=== PATIENT | female | born 1985 | race Caucasian/White ===

== ENCOUNTER 2020-11-04 03:46 | Emergency (ER) | payer OTHER, SELFPAY ==
--- NOTE | ~2020-11-04 | US_ITS ---
EXAMINATION: US OB <=14 wk fetus w TV DATE: 11/04/2020 05:14 INDICATION: Bleeding during first trimester TECHNIQUE: Real-time pelvic transabdominal and transvaginal ultrasound was performed. COMPARISON: None. FINDINGS: The uterus measures 8.9 x 5.4 x 6.5 cm. There is a 7 mm x 6 mm right 7 mm intrauterine flu id collection. A 1.9 x 1.7 x 1.7 cm hypoechoic area is seen adjacent to this fluid collection. No fet al pole is identified. The right ovary measures 4.2 x 2.6 x 2.5 cm and appears to contain a 1.[address] The left ovary measures 2.7 x 1.0 x 2.8 cm. There is normal vascular flow in the ovaries. There i s no free fluid in the pelvis. IMPRESSION: 1. Intrauterine fluid collection without visible pole which could reflect early . Annmarie cent hypoechoic area is suspicious for subchorionic hemorrhage. If the patient is clinically stable, recommend followup with serial beta-hCG and ultrasound. Reviewed, dictated and finalized at location A. IMPRESSION: 1. Intrauterine fluid collection without visible pole which could reflect early . Adjacent hypoechoic area is suspicious for subchorionic hemor rhage. If the patient is clinically stable, recommend followup with serial beta -hCG and ultrasound.
[2020-11-04 03:59] VITALS: BP 116/75; PULSE 72; RESP 14; TEMP 36.7; O2SAT 100
--- NOTE | 2020-11-04 04:32 | ED.FEMALEGU ---
HPI - Female Genitourinary General Chief complaint: Vaginal Bleeding Stated complaint: 6 weeks preg, vaginal bleeding Time Seen by Provider: 11/04/20 04:18 Source: patient and family Mode of arrival: ambulatory Limitations: no limitations History of Present Illness HPI Narrative: Patient is a 35-year-old female G2, P0 with a history of ectopic , who presents for evaluation after a syncopal episode secondary to vaginal bleeding. Patient states that she woke up approximately 1 hour ago due to some left lower quadrant abdominal pain, and then felt the urge to urinate, went to the bathroom and noted some blood present in her urine. No associated dysuria. No pelvic pressure. No large blood clots present. Patient reports some mild left flank pain as well. Patient then panicked seeing the blood in the toilet, was able to ambulate back to her bed, and then passed out while talking to her . She was already laying down and did not hit her head. Positive loss of consciousness for 10 to 15 seconds. No seizure-like activity, urinary incontinence or tongue biting. Patient then awakened, was not in a confused state. Patient reports feeling mildly nauseous and lightheaded. Patient states that her PAEDIATRICIAN, Dr. Arian Mueller, is at [facility]. Her last ectopic resolved on its own without any medical intervention. Patient is scheduled for a transvaginal ultrasound today. Related Data Allergies Allergy/AdvReac Type Severity Reaction Status Date / Time codeine Allergy Intermediate Other Verified 11/04/20 04:14 Review of Systems Review of Systems: CONSTITUTIONAL: Denies fever, chills, or sweats. EYES: Denies visual changes, redness, or discharge. ENT: Denies rhinorrhea, congestion, sore throat, or otalgia. CARDIOVASCULAR: Denies chest pain, palpitations, or edema. RESPIRATORY: Denies cough or dyspnea. GASTROINTESTINAL: Denies abdominal pain, nausea, reports left lower abdominal pain and pelvic pain GENITOURINARY: Denies dysuria, reports hematuria, reports vaginal bleeding SKIN: Denies rash or itching. MUSCULOSKELETAL: Denies back pain, joint pain, or myalgia. NEUROLOGIC: Denies headache, numbness, or weakness. FORMERLY [facility], 1928–1983 Social History Social History (Updated 11/04/20 @ 04:37 by Mecca Maravilla MD) Smoking status: Never smoker Alcohol intake: never Substance use: never Living arrangements: with family Gender identity (if verbalized by the patient): Female Exam Narrative: GENERAL: Awake, alert, conversant HEAD: Normocephalic, atraumatic. EYES: PERRLA and EOMI. ENT: Nares clear, no rhinorrhea or epistaxis. Mucous membranes moist. NECK: Supple. CHEST: No respiratory distress, breathing even and non labored HEART: Regular rate, sinus rhythm ABDOMEN:Non distended, non tender : Labia majora and minora normal without lesions. Vagina with blood. NO large blood clots. No cervical motion tenderness. No adnexal tenderness or fullness bilaterally. No mucoid discharge present. EXTREMITIES: Normal range of motion. No edema. SKIN: Warm, dry, no rash. NEURO:No focal deficits. Alert and oriented x3 Course Vital Signs Vital signs: Vital Signs Temperature 36.7 C 11/04/20 03:59 Pulse Rate 72 11/04/20 03:59 Respiratory Rate 14 11/04/20 03:59 Blood Pressure 116/75 11/04/20 03:59 Pulse Oximetry 100 11/04/20 03:59 Temperature 36.7 C 11/04/20 03:59 Pulse Rate 72 11/04/20 03:59 Respiratory Rate 14 11/04/20 03:59 Blood Pressure 116/75 11/04/20 03:59 Pulse Oximetry 100 11/04/20 03:59 MDM - Female Genitourinary MDM Narrative Medical decision making narrative: Patient presented for evaluation of vaginal bleeding and syncopal episode. At the time of assessment, ABCs are intact and vital signs are stable. No head trauma. No neurological deficits at the time of assessment. No significant abdominal pain on exam. EKG without acute ischemic changes. No evidence of right heart stra
--- NOTE | 2020-11-04 04:45 | ECG_ITS ---
Measurements Intervals [place] Rate: 75 P: 63 PA: 144 QRS: 40 QRSD: 83 T: 1 QT: 361 QTc: 404 Interpretive Statements SINUS RHYTHM POSSIBLE LEFT ATRIAL ENLARGEMENT BORDERLINE ST-T WAVE ABNORMALITY- INFERIOR LEADS BORDERLINE ECG Electronically Signed On 11-04-2020 7:02:04 CDT by Jose R Browne D.O.
[2020-11-04 05:12] LABS: Basophils Percent Auto 0.3 % (0.2-1.2); Eosinophils Absolute Auto 0.1 K/mm3 (0-0.3); Eosinophils Percent Auto 0.9 % (0-4.4); Hematocrit 39.4 % (37.0-47.0); Hemoglobin 13.6 g/dL (12.0-15.0); Immature Granulocyte Absolute 0.01 K/mm3 (0.00-0.031); Immature Granulocyte Percent A 0.1 % (0-0.5); Lymphocytes Absolute Auto 2.33 K/mm3 (0.9-3.2); Lymphocytes Percent Auto 33.2 % (18.3-44.2); Mean Corpuscular HGB Conc 34.5 g/dl (32-36); Mean Corpuscular Hemoglobin 32.5 pg (26-34); Mean Platelet Volume 10.7 fl (7.4-10.4); Monocytes Absolute Auto 0.6 K/mm3 (0.1-0.6); Neutrophils Percent Auto 56.5 % (45.5-73.1); Platelet Count Result 220 k/mm3 (150-375); Red Blood Count 4.19 M/mm3 (4.2-5.4); Red Cell Distribution Width 12.3 % (11.5-14.5)
[2020-11-04 05:36] LABS: Alanine Aminotransferase 17 U/L (4-35); Albumin Level 4.5 g/dL (3.5-5.1); Alkaline Phosphatase 41 U/L (38-126); Anion Gap 9 mmol/L (8-16); Aspartate Amino Transferase 35 U/L (14-36); Bilirubin,Total 0.8 mg/dL (0.2-1.3); Blood Urea Nitrogen 13 mg/dL (7-17); Carbon Dioxide 20 mmol/L (22-30); Chloride 107 mmol/L (98-107); Estimated CRCL calculation 128 ml/min; Estimated Glomerular Filt Rate > 60; Glucose 111 mg/dL (65-110); Sodium 136 mmol/L (137-145)
[2020-11-04 07:04] LABS: Add Urine Microscopic? YES; Appearance Urine Clear (Clear); Bilirubin Urine Negative (Negative); Blood Urine 2+ (Negative); Color Urine Straw (Yellow); Glucose Urine UA Negative (Negative); Ketones Urine Negative (Negative); Leukocyte Esterase Ur Negative LEU/UL (Negative); Nitrate Urine Negative (Negative); Protein Urine Negative (Negative); Specific Grav Ur 1.006 (1.001-1.035); Squamous Epithelial Cell Urine Rare /hpf (Few); Urobilinogen Urine Negative mg/dL (<2.0)
[2020-11-04 07:16] VITALS: BP 119/80; PULSE 82; RESP 18; O2SAT 100
== END 2020-11-04 07:16 | disposition home or self-care (01) ==
PROVIDERS: Emergency Provider Emergency Medicine; PCP Physician Assistant
DX: O26.891 Other specified pregnancy related conditions, first trimester (principal); R55 Syncope and collapse; O20.9 Hemorrhage in early pregnancy, unspecified; Z3A.01 Less than 8 weeks gestation of pregnancy; R94.31 Abnormal electrocardiogram [ECG] [EKG]
CPT/HCPCS: 36415; 76801; 76817; 80053; 81001; 84702; 85025; 85461; 93005; 99284

== ENCOUNTER 2021-04-23 11:10 | Outpatient (CLI) | payer OTHER, SELFPAY ==
[2021-04-23 12:17] LABS: Add Urine Microscopic? YES; Appearance Urine Clear (Clear); Bacteria Urine Trace /hpf; Bilirubin Urine Negative (Negative); Blood Urine Negative (Negative); Color Urine Straw (Yellow); Glucose Urine UA Negative (Negative); Ketones Urine Negative (Negative); Leukocyte Esterase Ur 1+ LEU/UL (Negative); Mucus Urine Rare /lpf; Nitrate Urine Negative (Negative); Protein Urine Negative (Negative); RBC Urine 0-2 /hpf (0-2); Urobilinogen Urine Negative mg/dL (<2.0); WBC Urine 0-3 /hpf
[2021-04-23 12:18] LABS: Specific Grav Ur 1.002 (1.001-1.035)
== END 2021-04-23 13:14 | disposition home or self-care (01) ==
LOC: ANHOBOP 11:20 → ANHOBPP 11:21
PROVIDERS: PCP Physician Assistant; Visit Provider Obstetrics & Gynecology
DX: O42.90 Premature rupture of membranes, unspecified as to length of time between rupture and onset of labor, unspecified weeks of gestation (principal); Z3A.00 Weeks of gestation of pregnancy not specified
CPT/HCPCS: 59025; 81001; 84112; 99199